=== PATIENT | male | born 1980 | race Caucasian/White ===

== ENCOUNTER 2018-03-26 10:10 | Emergency (ER) | payer MEDICAID ==
[~2018-03-26] VITALS: Ht 175.3 cm; Wt 65.0 kg
[2018-03-26 12:10] VITALS: BP 119/72
== END 2018-03-26 12:37 | disposition home or self-care (01) ==
LOC: EMS 10:11
DX: S60.221A Contusion of right hand, initial encounter (principal); F15.90 Other stimulant use, unspecified, uncomplicated; F17.210 Nicotine dependence, cigarettes, uncomplicated; W22.01XA Walked into wall, initial encounter; Y93.89 Activity, other specified; Y92.89 Other specified places as the place of occurrence of the external cause; Y99.8 Other external cause status
CPT/HCPCS: 99284

== ENCOUNTER 2018-04-05 18:13 | Emergency (ER) | payer MEDICAID ==
[~2018-04-05] VITALS: Ht 175.3 cm; Wt 68.2 kg
[2018-04-05 18:55] VITALS: BP 128/79
== END 2018-04-05 19:14 | disposition home or self-care (01) ==
LOC: EMS 18:14
DX: F45.8 Other somatoform disorders (principal); F41.9 Anxiety disorder, unspecified; F17.210 Nicotine dependence, cigarettes, uncomplicated
CPT/HCPCS: 99283; 99284

== ENCOUNTER 2018-06-27 05:11 | Emergency (ER) | payer MEDICAID ==
[~2018-06-27] VITALS: Ht 175.3 cm; Wt 70.5 kg
[2018-06-27 08:43] VITALS: BP 128/92
== END 2018-06-27 08:58 | disposition home or self-care (01) ==
LOC: EMS 05:11
DX: R21 Rash and other nonspecific skin eruption (principal); F17.210 Nicotine dependence, cigarettes, uncomplicated; F19.90 Other psychoactive substance use, unspecified, uncomplicated

== ENCOUNTER 2018-07-20 14:02 | Emergency (ER) | payer MEDICAID ==
[~2018-07-20] VITALS: Ht 170.2 cm; Wt 68.2 kg
[2018-07-20] MEDS ORDERED: LORazepam 2 MG/ML VIAL IVP ONE ×2 (15:15→16:45)
[2018-07-20 15:34] LABS: BASOPHILS % (AUTO) 0.8 % (0.0-2.0); EOSINOPHILS % (AUTO) 0.5 % (1.0-6.0); HEMATOCRIT 44.9 % (41-53); HEMOGLOBIN 15.3 g/dL (13.5-17.5); LYMPHOCYTES # (AUTO) 1.8 K/uL (1.0-4.8); LYMPHOCYTES % (AUTO) 17.6 % (22.0-44.0); MEAN CORPUSCULAR HEMOGLOBIN 29.3 pg (26.0-34.0); MEAN CORPUSCULAR HGB CONC 34.2 G/dL (31.0-37.0); MEAN CORPUSCULAR VOLUME 86 fL (80-100); MONOCYTES % (AUTO) 9.3 % (2.0-9.0); NEUTROPHILS # (AUTO) 7.4 K/uL (1.8-7.7); NEUTROPHILS % (AUTO) 71.8 % (40.0-70.0); PLATELET COUNT (AUTO) 283 K/uL (150-450); RED BLOOD CELL COUNT(AUTO) 5.23 MIL/uL (4.50-5.90); RED CELL DISTRIBUTION WIDTH 13.4 % (11.5-14.5)
[2018-07-20 15:46] LABS: ANION GAP 14 mmol/L (8-16); CALCIUM, TOTAL 9.1 mg/dL (8.8-10.5); CARBON DIOXIDE 25 mmol/L (22-29); CHLORIDE 99 mmol/L (98-107); CREATININE 0.88 mg/dL (0.60-1.30); GLOMERULAR FILTR. RATE CALC > 60 mL/min (>60); GLUCOSE,RANDOM 95 mg/dL (70-110); POTASSIUM 3.1 mmol/L (3.5-5.1); SODIUM SERUM 138 mmol/L (136-145); UREA NITROGEN, BLOOD 9 mg/dL (7-18)
[2018-07-20 15:52] LABS: ALANINE AMINOTRANSFERASE 21 U/L (12-78); ALKALINE PHOSPHATASE 97 U/L (46-116); ASPARTATE AMINOTRANSFERASE 25 U/L (15-37); BILIRUBIN,TOTAL 2.4 mg/dL (0.1-1.0); TOTAL PROTEIN, SERUM 7.4 g/dL (6.4-8.2)
[2018-07-20] MEDS: SODIUM CHLORIDE 0.9% 1,000 ML IV ONE ×2 (17:17→17:25)
[2018-07-20 18:14] LABS: APPEARANCE,URINE CLOUDY (CLEAR); BILIRUBIN,URINE NEGATIVE (NEGATIVE); GLUCOSE, URINE (UA) NEGATIVE (NEGATIVE); KETONES,URINE 40 mg/dL (NEGATIVE); LEUKOCYTE ESTERASE ,URINE NEGATIVE (NEGATIVE); NITRATE,URINE NEGATIVE (NEGATIVE); OCCULT BLOOD,URINE NEGATIVE (NEGATIVE); PROTEIN,URINE NEGATIVE (NEGATIVE); UROBILINOGEN,URINE 0.2 mg/dL (<=1.0)
[2018-07-20 18:19] LABS: AMPHET/METH SCREEN,URINE POSITIVE (NEGATIVE); BARBITURATE SCREEN, URINE NEGATIVE (NEGATIVE); BENZODIAZEPINES SCREEN,URINE NEGATIVE (NEGATIVE); CANNABINOID SCREEN,URINE NEGATIVE (NEGATIVE); COCAINE SCREEN,URINE NEGATIVE (NEGATIVE); METHADONE SCREEN, URINE NEGATIVE (NEGATIVE); OPIATE SCREEN,URINE NEGATIVE (NEGATIVE); PHENCYCLIDINE SCREEN,URINE NEGATIVE (NEGATIVE)
[2018-07-20 18:22] LABS: BACTERIA,URINE None Seen /HPF (None Seen); RBC,URINE 0-2 /HPF (0-2); SQUAMOUS EPITHELIAL CELL,UR Rare /LPF (None Seen); WBC,URINE 0-2 /HPF (0-5)
[2018-07-20] MEDS ORDERED: POTASSIUM CHLORIDE 20 MEQ ER TABLET PO ONE (19:15)
[2018-07-20 21:48] VITALS: BP 127/77
== END 2018-07-20 20:37 | disposition home or self-care (01) ==
LOC: EMS 14:03
DX: F15.929 Other stimulant use, unspecified with intoxication, unspecified (principal); E87.6 Hypokalemia; F17.210 Nicotine dependence, cigarettes, uncomplicated
CPT/HCPCS: 36415; 80053; 80307; 81001; 85025; 93005; 96374; 96375; 99285; G0480; J2060; J7030

== ENCOUNTER 2018-08-06 17:46 | Emergency (ER) | payer MEDICAID ==
[~2018-08-06] VITALS: Ht 175.3 cm; Wt 68.2 kg
[2018-08-06 17:48] VITALS: BP 142/81
== END 2018-08-06 18:26 | disposition home or self-care (01) ==
LOC: EMS 17:48
DX: L73.9 Follicular disorder, unspecified (principal); F22 Delusional disorders; R03.0 Elevated blood-pressure reading, without diagnosis of hypertension; F41.9 Anxiety disorder, unspecified; F17.210 Nicotine dependence, cigarettes, uncomplicated; F19.90 Other psychoactive substance use, unspecified, uncomplicated

== ENCOUNTER 2019-01-30 16:17 | Emergency (ER) | payer MEDICAID ==
[~2019-01-30] VITALS: Ht 175.3 cm; Wt 68.2 kg
[2019-01-30] MEDS ORDERED: SODIUM CHLORIDE 0.9% 2,000 ML IV ONE (16:45)
[2019-01-30 16:47] LABS: BASOPHILS % (AUTO) 1.5 % (0.0-2.0); EOSINOPHILS % (AUTO) 1.2 % (1.0-6.0); HEMATOCRIT 49.7 % (41-53); HEMOGLOBIN 16.6 g/dL (13.5-17.5); LYMPHOCYTES # (AUTO) 3.1 K/uL (1.0-4.8); LYMPHOCYTES % (AUTO) 39.2 % (22.0-44.0); MEAN CORPUSCULAR HEMOGLOBIN 29.6 pg (26.0-34.0); MEAN CORPUSCULAR HGB CONC 33.3 G/dL (31.0-37.0); MEAN CORPUSCULAR VOLUME 89 fL (80-100); MONOCYTES # (AUTO) 0.9 K/uL (0.1-1.0); MONOCYTES % (AUTO) 11.1 % (2.0-9.0); NEUTROPHILS # (AUTO) 3.7 K/uL (1.8-7.7); PLATELET COUNT (AUTO) 309 K/uL (150-450)
[2019-01-30 16:51] LABS: GLUCOSE,POINT OF CARE 122 MG/DL (70-110)
[2019-01-30 17:06] LABS: ALANINE AMINOTRANSFERASE 27 U/L (12-78); ALKALINE PHOSPHATASE 122 U/L (46-116); ANION GAP 16 mmol/L (8-16); ASPARTATE AMINOTRANSFERASE 20 U/L (15-37); BILIRUBIN,TOTAL 3.6 mg/dL (0.1-1.0); CALCIUM, TOTAL 10.5 mg/dL (8.8-10.5); CARBON DIOXIDE 25 mmol/L (22-29); CHLORIDE 95 mmol/L (98-107); CREATININE 1.03 mg/dL (0.60-1.30); GLOMERULAR FILTR. RATE CALC > 60 mL/min (>60); GLUCOSE,RANDOM 121 mg/dL (70-110); LIPASE 74 U/L (73-393); SODIUM SERUM 136 mmol/L (136-145); TOTAL PROTEIN, SERUM 8.5 g/dL (6.4-8.2); UREA NITROGEN, BLOOD 8 mg/dL (7-18)
[2019-01-30 17:09] LABS: APPEARANCE,URINE CLEAR (CLEAR); BILIRUBIN,URINE NEGATIVE (NEGATIVE); GLUCOSE, URINE (UA) NEGATIVE (NEGATIVE); KETONES,URINE TRACE mg/dL (NEGATIVE); LEUKOCYTE ESTERASE ,URINE NEGATIVE (NEGATIVE); NITRATE,URINE NEGATIVE (NEGATIVE); OCCULT BLOOD,URINE NEGATIVE (NEGATIVE); PROTEIN,URINE NEGATIVE (NEGATIVE); UROBILINOGEN,URINE 0.2 mg/dL (<=1.0)
[2019-01-30 17:12] LABS: AMPHET/METH SCREEN,URINE POSITIVE (NEGATIVE); BARBITURATE SCREEN, URINE NEGATIVE (NEGATIVE); BENZODIAZEPINES SCREEN,URINE NEGATIVE (NEGATIVE); CANNABINOID SCREEN,URINE NEGATIVE (NEGATIVE); COCAINE SCREEN,URINE NEGATIVE (NEGATIVE); METHADONE SCREEN, URINE NEGATIVE (NEGATIVE); OPIATE SCREEN,URINE NEGATIVE (NEGATIVE)
[2019-01-30 17:13] LABS: PHENCYCLIDINE SCREEN,URINE NEGATIVE (NEGATIVE)
[2019-01-30] MEDS ORDERED: LORazepam 2 MG/ML VIAL IVP ONE (17:15)
[2019-01-30] MEDS ORDERED: POTASSIUM CHL 10 MEQ/WATER 50 ML IV SCH (17:15)
[2019-01-30 17:32] LABS: SALICYLATE < 2.8 mg/dL (2.8-20.0)
[2019-01-30 17:42] LABS: CREATINE KINASE, TOTAL ONLY 120 U/L (39-308)
[2019-01-30 17:43] LABS: ACETAMINOPHEN < 2 mcg/mL (10-30)
[2019-01-30 18:04] LABS: LACTIC ACID 2.2 mmol/L (0.4-2.0)
[2019-01-30] MEDS ORDERED: POTASSIUM CHLORIDE 20 MEQ ER TABLET PO ONE (18:45)
[2019-01-30] MEDS ORDERED: SODIUM CHLORIDE 0.9% 100 ML ONE (20:05)
[2019-01-30] MEDS ORDERED: IOVERSOL 320 MG/ML 100 ML VIAL ONE (20:05)
[2019-01-30 22:50] VITALS: BP 138/79
== END 2019-01-30 23:00 | disposition home or self-care (01) ==
LOC: EMS 16:18
DX: R10.32 Left lower quadrant pain (principal); R45.1 Restlessness and agitation; F15.10 Other stimulant abuse, uncomplicated; F41.9 Anxiety disorder, unspecified; F17.210 Nicotine dependence, cigarettes, uncomplicated; F19.90 Other psychoactive substance use, unspecified, uncomplicated
CPT/HCPCS: 36415; 71045; 74177; 76700; 80053; 80307; 81003; 82550; 82962; 83605; 83690; 85025; 93005; 99284; G0480; J3480; J7050; Q9967; G0481; J2060

== ENCOUNTER 2019-03-02 17:10 | Emergency (ER) | payer MEDICAID ==
[~2019-03-02] VITALS: Ht 175.3 cm; Wt 75.0 kg
[2019-03-02] MEDS ORDERED: LORazepam 1 MG TABLET PO ONE (18:00)
[2019-03-02 18:07] LABS: BASOPHILS % (AUTO) 0.4 % (0.0-2.0); EOSINOPHILS % (AUTO) 0.8 % (1.0-6.0); HEMOGLOBIN 14.2 g/dL (13.5-17.5); LYMPHOCYTES # (AUTO) 1.2 K/uL (1.0-4.8); LYMPHOCYTES % (AUTO) 8.1 % (22.0-44.0); MEAN CORPUSCULAR HEMOGLOBIN 29.5 pg (26.0-34.0); MEAN CORPUSCULAR HGB CONC 33.1 G/dL (31.0-37.0); MEAN CORPUSCULAR VOLUME 89 fL (80-100); MONOCYTES # (AUTO) 1.5 K/uL (0.1-1.0); MONOCYTES % (AUTO) 10.7 % (2.0-9.0); NEUTROPHILS # (AUTO) 11.5 K/uL (1.8-7.7); PLATELET COUNT (AUTO) 274 K/uL (150-450); RED BLOOD CELL COUNT(AUTO) 4.81 MIL/uL (4.50-5.90); RED CELL DISTRIBUTION WIDTH 12.8 % (11.5-14.5)
[2019-03-02 18:26] LABS: ANION GAP 8 mmol/L (8-16); CALCIUM, TOTAL 9.1 mg/dL (8.8-10.5); CARBON DIOXIDE 30 mmol/L (22-29); CHLORIDE 101 mmol/L (98-107); CREATININE 0.97 mg/dL (0.60-1.30); GLOMERULAR FILTR. RATE CALC > 60 mL/min (>60); GLUCOSE,RANDOM 97 mg/dL (70-110); POTASSIUM 4.4 mmol/L (3.5-5.1); SODIUM SERUM 139 mmol/L (136-145); UREA NITROGEN, BLOOD 17 mg/dL (7-18)
[2019-03-02 18:32] LABS: ALANINE AMINOTRANSFERASE 12 U/L (12-78); ALBUMIN 3.8 g/dL (3.4-5.0); ALKALINE PHOSPHATASE 110 U/L (46-116); ASPARTATE AMINOTRANSFERASE 19 U/L (15-37); BILIRUBIN,TOTAL 1.5 mg/dL (0.1-1.0); TOTAL PROTEIN, SERUM 7.8 g/dL (6.4-8.2)
[2019-03-02 19:16] LABS: AMPHET/METH SCREEN,URINE POSITIVE (NEGATIVE); BARBITURATE SCREEN, URINE NEGATIVE (NEGATIVE); BENZODIAZEPINES SCREEN,URINE NEGATIVE (NEGATIVE); CANNABINOID SCREEN,URINE NEGATIVE (NEGATIVE); COCAINE SCREEN,URINE NEGATIVE (NEGATIVE); METHADONE SCREEN, URINE NEGATIVE (NEGATIVE); OPIATE SCREEN,URINE NEGATIVE (NEGATIVE)
[2019-03-02 19:38] LABS: PHENCYCLIDINE SCREEN,URINE NEGATIVE (NEGATIVE)
[2019-03-02 20:24] VITALS: BP 118/79
== END 2019-03-02 20:28 | disposition home or self-care (01) ==
LOC: EMS 17:11
DX: F10.20 Alcohol dependence, uncomplicated (principal); F15.10 Other stimulant abuse, uncomplicated; F41.9 Anxiety disorder, unspecified; F17.210 Nicotine dependence, cigarettes, uncomplicated; Z98.890 Other specified postprocedural states
CPT/HCPCS: 36415; 80053; 80307; 85025; 99283; 99406; G0480

== ENCOUNTER 2019-12-09 05:17 | Emergency (ER) | payer MEDICAID ==
[~2019-12-09] VITALS: Ht 175.3 cm; Wt 65.9 kg
[2019-12-09 06:10] VITALS: BP 139/108
== END 2019-12-09 07:39 | disposition home or self-care (01) ==
LOC: EMS 05:17
DX: S09.90XA Unspecified injury of head, initial encounter (principal); F17.210 Nicotine dependence, cigarettes, uncomplicated; F15.90 Other stimulant use, unspecified, uncomplicated; F41.9 Anxiety disorder, unspecified; X58.XXXA Exposure to other specified factors, initial encounter; Y93.89 Activity, other specified; Y92.89 Other specified places as the place of occurrence of the external cause; Y99.8 Other external cause status

== ENCOUNTER 2020-03-01 07:29 | Inpatient (IN) | payer MEDICAID ==
[~2020-03-01] VITALS: Ht 175.3 cm; Wt 60.6 kg
[2020-03-01] MEDS ORDERED: LORazepam 2 MG TABLET PO PRN (08:45)
[2020-03-01] MEDS ORDERED: ZOLPIDEM TARTRATE 10 MG TABLET PO PRN (08:45)
[2020-03-01] MEDS ORDERED: HALOPERIDOL 5 MG TABLET PO PRN (08:45)
[2020-03-01 11:18] VITALS: BP 122/81
[2020-03-01] MEDS ORDERED: DiphenhydrAMINE HCL 50 MG/ML VIAL IM ONE (12:15)
[2020-03-01] MEDS ORDERED: LORazepam 2 MG/ML VIAL IM ONE (12:15)
[2020-03-01] MEDS ORDERED: HALOPERIDOL LACTATE 5 MG/ML VIAL IM ONE (12:15)
[2020-03-01] MEDS: OLANZapine 5 MG TABLET PO SCH ×2 (13:45→17:00)
[2020-03-01 16:05] VITALS: BP 136/82
[2020-03-02 06:18] VITALS: BP_SYST 128; BP_DIAS 78; BP_DIAS 84
[2020-03-02 08:06] VITALS: BP 118/77
[2020-03-02 08:06] LABS: AMPHET/METH SCREEN,URINE POSITIVE (NEGATIVE); BARBITURATE SCREEN, URINE NEGATIVE (NEGATIVE); BENZODIAZEPINES SCREEN,URINE NEGATIVE (NEGATIVE); CANNABINOID SCREEN,URINE NEGATIVE (NEGATIVE); COCAINE SCREEN,URINE NEGATIVE (NEGATIVE); METHADONE SCREEN, URINE NEGATIVE (NEGATIVE); OPIATE SCREEN,URINE NEGATIVE (NEGATIVE)
[2020-03-02 08:07] LABS: PHENCYCLIDINE SCREEN,URINE NEGATIVE (NEGATIVE)
[2020-03-02] MEDS ORDERED: ONDANSETRON HCL 4 MG TABLET PO PRN (08:30)
[2020-03-02] MEDS ORDERED: MAGNESIUM HYDROXIDE SUSPENSION 30 ML UDCUP PO PRN (08:30)
[2020-03-02] MEDS ORDERED: GuaiFENesin/D-METHORPHAN [SUGAR-FREE] 200-20MG/10 ML SYRUP UDCUP PO PRN (08:30)
[2020-03-02] MEDS ORDERED: MAG HYDROX/AL HYDROX/SIMETH ES 30 ML SUSPENSION UDCUP PO PRN (08:30)
[2020-03-02] MEDS ORDERED: DOCUSATE SODIUM 100 MG CAPSULE PO PRN (08:30)
[2020-03-02] MEDS ORDERED: ALBUTEROL SULFATE HFA 90 MCG/PUFF 8 GM INHALER IH PRN (08:30)
[2020-03-02] MEDS ORDERED: NICOTINE 14 MG/24 HOUR PATCH TD PRN (08:30)
[2020-03-02] MEDS ORDERED: LOPERAMIDE HCL 2 MG CAPSULE PO PRN (08:30)
[2020-03-02] MEDS ORDERED: CloNIDine HCL 0.1 MG TABLET PO PRN (08:30)
[2020-03-02] MEDS ORDERED: PETROLATUM,WHITE 28 GM JELLY TP PRN (08:30)
[2020-03-02] MEDS ORDERED: ACETAMINOPHEN 325 MG TABLET PO PRN (08:30)
[2020-03-02] MEDS: OLANZapine 5 MG TABLET PO SCH ×2 (09:00→16:47)
[2020-03-02] MEDS: NICOTINE 21 MG/24 HOUR PATCH TD SCH (09:00)
[2020-03-02] MEDS: IBUPROFEN 400 MG TABLET PO PRN (11:00)
[2020-03-02 16:16] VITALS: BP 125/74
[2020-03-03 06:34] VITALS: BP 121/79
[2020-03-03 08:25] VITALS: BP 100/60
[2020-03-03] MEDS: NICOTINE 21 MG/24 HOUR PATCH TD SCH (09:00)
[2020-03-03] MEDS: OLANZapine 5 MG TABLET PO SCH ×2 (09:00→17:00)
[2020-03-03] MEDS: IBUPROFEN 400 MG TABLET PO PRN (09:02)
[2020-03-03 16:04] VITALS: BP 103/65
[2020-03-04 03:50] VITALS: BP 100/75
[2020-03-04 08:18] LABS: BASOPHILS % (AUTO) 0.9 % (0.0-2.0); HEMOGLOBIN 16.3 g/dL (13.5-17.5); LYMPHOCYTES # (AUTO) 1.7 K/uL (1.0-4.8); LYMPHOCYTES % (AUTO) 29.9 % (22.0-44.0); MEAN CORPUSCULAR HEMOGLOBIN 30.8 pg (26.0-34.0); MEAN CORPUSCULAR HGB CONC 33.3 G/dL (31.0-37.0); MEAN CORPUSCULAR VOLUME 92 fL (80-100); MONOCYTES # (AUTO) 0.6 K/uL (0.1-1.0); MONOCYTES % (AUTO) 9.6 % (2.0-9.0); NEUTROPHILS # (AUTO) 3.3 K/uL (1.8-7.7); NEUTROPHILS % (AUTO) 56.6 % (40.0-70.0); PLATELET COUNT (AUTO) 258 K/uL (150-450); RED CELL DISTRIBUTION WIDTH 13.5 % (11.5-14.5)
[2020-03-04] MEDS: NICOTINE 21 MG/24 HOUR PATCH TD SCH (08:49)
[2020-03-04] MEDS: OLANZapine 5 MG TABLET PO SCH (08:49)
[2020-03-04 09:52] LABS: ALANINE AMINOTRANSFERASE 27 U/L (12-78); ALBUMIN 4.1 g/dL (3.4-5.0); ALKALINE PHOSPHATASE 88 U/L (46-116); ANION GAP 5 mmol/L (8-16); ASPARTATE AMINOTRANSFERASE 20 U/L (15-37); BILIRUBIN,TOTAL 0.6 mg/dL (0.1-1.0); CALCIUM, TOTAL 9.5 mg/dL (8.8-10.5); CARBON DIOXIDE 31 mmol/L (22-29); CHLORIDE 104 mmol/L (98-107); CHOL/HDL RATIO 2.2 (4.2-7.3); CHOLESTEROL 146 mg/dL (131-200); CREATININE 0.97 mg/dL (0.60-1.30); FREE T4 (FREE THYROXINE) 0.97 ng/dL (0.76-1.46); GLOMERULAR FILTR. RATE CALC > 60 mL/min (>60); GLUCOSE,RANDOM 85 mg/dL (70-110); HDL CHOLESTEROL 66 mg/dL (40-60); LDL CHOL (CALC.) 71 mg/dL (0-130); POTASSIUM 3.9 mmol/L (3.5-5.1); SODIUM SERUM 140 mmol/L (136-145); THYROID STIMULATING HORMONE 1.75 uIU/mL (0.36-3.74); TOTAL PROTEIN, SERUM 7.7 g/dL (6.4-8.2); TRIGLYCERIDES 46 mg/dL (15-150); UREA NITROGEN, BLOOD 20 mg/dL (7-18)
[2020-03-04 10:44] VITALS: BP 135/86
[2020-03-04] MEDS ORDERED: OLAN5TAB2 PO (10:56)
== END 2020-03-04 16:00 | disposition home or self-care (01) | DRG 750 ==
LOC: B3A 09:09
DX: F20.9 Schizophrenia, unspecified (principal); F10.10 Alcohol abuse, uncomplicated; G44.209 Tension-type headache, unspecified, not intractable; Z91.19 Patient's noncompliance with other medical treatment and regimen; Z79.899 Other long term (current) drug therapy
CPT/HCPCS: 80307; 83036; 84439; 84443; J1200; J1630; J2060